=== PATIENT | female | born 1990 | race Caucasian/White ===

== ENCOUNTER 2020-08-03 15:27 | Inpatient (IN) ==
[2020-08-03] MEDS ORDERED: RINGER'S SOLUTION,LACTATED 1,000 ML IV ONE (15:38)
[2020-08-03] MEDS ORDERED: OXYTOCIN/0.9 % SODIUM CHLORIDE 30 UNITS/500 ML BAG IV ONE (15:38)
[2020-08-03] MEDS ORDERED: ONDANSETRON 4 MG TAB.RAPDIS PO PRN (15:38)
[2020-08-03] MEDS: DEXTROSE 5%-LACTATED RINGERS 1,000 ML IV PRN (18:58)
[2020-08-03] MEDS ORDERED: BUPIVACAINE HCL/0.9 % NACL/PF 250 ML EP PRN (23:07)
[2020-08-03] MEDS ORDERED: NALOXONE HCL 1 MG/1 ML SYRG IV PRN (23:07)
[2020-08-03] MEDS ORDERED: ONDANSETRON HCL/PF 2 MG/ML VIAL IV PRN (23:07)
[2020-08-03] MEDS ORDERED: fentaNYL CITRATE/PF 50 MCG/ML AMPUL IT SCH (23:15)
--- NOTE | 2020-08-04 00:17 | ANES ---
Anesthesia Pre Procedure Eval Vitals/Labs: Last Vital Signs Temp 36.3 C 08/04/20 00:08 Pulse 87 08/04/20 00:08 Resp 17 08/04/20 00:08 BP 113/71 08/04/20 00:08 Pulse Ox 99 08/04/20 00:08 HOME MEDICATIONS levothyroxine 25 mcg capsule 50 mcg PO DAILY cap 11/18/18 [Last Taken Unknown] acetone (urine) test See Rx Instructions .ROUTE .MEDSUPPLY #100 ea 05/29/20 [Last Taken Unknown] blood sugar diagnostic See Rx Instructions .ROUTE .MEDSUPPLY #100 ea 05/29/20 [Last Taken Unknown] blood-glucose meter See Rx Instructions .ROUTE .MEDSUPPLY #1 ea 05/29/20 [Last Taken Unknown] lancets See Rx Instructions .ROUTE .MEDSUPPLY #100 ea 05/29/20 [Last Taken Unknown] Vits96/Iron Fum/Folic [ S] 1 tab PO DAILY 08/03/20 [Last Taken Unknown] Allergies/Adverse Reactions: Allergies Allergy/AdvReac Type Severity Reaction Status Date / Time carbinoxamine maleate AdvReac Intermediate HYPERSTIMUL Verified 08/03/20 15:33 [From Rondec] ATED pseudoephedrine HCl AdvReac Intermediate HYPERSTIMUL Verified 08/03/20 15:33 [From Rondec] ATED acetaminophen [From Percocet] AdvReac Mild Hives Verified 08/03/20 15:33 amoxicillin [Amoxicillin] AdvReac Mild Hives Verified 08/03/20 15:33 cefaclor [From Ceclor] AdvReac Mild childhood/u Verified 08/03/20 15:33 nknown cefixime [From Suprax] AdvReac Mild Hives Verified 08/03/20 15:33 Cephalosporins AdvReac Mild Hives Verified 08/03/20 15:33 oxycodone HCl [From Percocet] AdvReac Mild Hives Verified 08/03/20 15:33 Penicillins AdvReac Mild Hives Verified 08/03/20 15:33 Sulfa (Sulfonamide AdvReac Mild Hives Verified 08/03/20 15:33 Antibiotics) [Sulfa(Sulfonamide Antibiotics)] erythromycin base AdvReac Unknown unknown/chi Verified 08/03/20 15:33 [Erythromycin Base] ldhood - Planned Procedure Planned Procedure: active labor Medication List Reviewed:: Yes Allergies Verified: Yes Medical History (Last Reviewed 08/04/20 @ 00:15 by Prakash Adrian CRNA) Hypothyroid (Chronic) Body mass index (BMI) of 36.0 to 36.9 (Chronic) Anxiety (Chronic) Abnormal Pap smear of vagina Onset Date: ~2012 Depression Onset Date: Unknown Generalized anxiety disorder Onset Date: Unknown Surgical History (Last Reviewed 08/04/20 @ 00:15 by Prakash Adrian CRNA) H/O adenoidectomy Onset Date: ~05/2000 History of cholecystectomy Onset Date: ~07/2013 History of colposcopy Onset Date: ~09/2013 History of myringotomy Onset Date: ~05/2000 History of repair of anterior cruciate ligament of right knee Onset Date: ~2006 History of tonsillectomy Onset Date: ~1995 Injury of meniscus of right knee Onset Date: ~2006 Surgical screw in right hand Onset Date: ~1998 Family History (Last Reviewed 08/04/20 @ 00:15 by Prakash Adrian CRNA) Mother Migraines Fibromyalgia Father Epilepsy H/O colonoscopy with polypectomy MDS (myelodysplastic syndrome) Sister Alive and well Grandmother CHF (congestive heart failure) paternal grandmother Grandfather , prostate cancer Cancer Aunt , maternal aunt breast and lung cancer Cancer - Family Anesthesia History Family History:: no untoward family reactions to anesthesia, no familial bleeding tendencies, no family history of clotting disorders, no family history of premature - Airway/Neck/Teeth Within Normal Limits:: Yes Teeth Condition: intact Neck Exam: full range of motion Mallampatti Score: 2 Thyromental (T-M) distance: > 6 cm Mandibulo Hyoid distance: > 3 cm - Respiratory Respiratory Physical: lungs clear Sleep Apnea currently treated: No Sleep Apnea by current assessment: No - Cardiovascular Tolerate Activity: Fair Heart Sounds: S1 & S2, Regular - Gastrointestinal NPO since: 2400 - Anesthesia Assessment and Plan ASA Class: PS, II, E Anesthesia Type Plan: Epidural - CSE for labor epidural
[2020-08-04] MEDS: DEXTROSE 5%-LACTATED RINGERS 1,000 ML IV PRN (00:20)
--- NOTE | 2020-08-04 00:39 | ANES ---
Post Anesthesia Discharge - Transfer of Care Transfer of Care handoff given to nurse: Yes - Discharge from PACU Discharge from PACU when meets criteria: Yes - Comfortable post CSE
--- NOTE | 2020-08-04 00:39 | ANES ---
Anesthesia Procedure Note Procedure Note: ANESTHESIA PROCEDURE NOTE Date of Procedure: 08/04/2020 Time of procedure: 12:15 AM. Performed by: JONNY Silva CRNA, MSN Lacer And Tier: Evette De La Vega RN. Preprocedure diagnosis: Active labor, labor pain. Post procedure diagnosis: Same. Procedure:Epidural for labor analgesia L3-4. Indications: Labor pain. Findings: See below. Details of the procedure: The patient was placed on the side of the bed in sitting positionand prepped with DuraPrep then draped in a sterile fashion. Lidocaine 1% was infiltrated to the skin and subcutaneous tissues at the level of the L3-4 interspace. An 18-gauge Touhy needle was used to approach the epidural space with loss of resistance technique. Once loss of resistance was achieved a 27-gauge spinal needle was passed through the epidural needle and CSF was contacted. After CSF returned, 20 mcg of fentanyl was injected in the spinal needle was removed the epidural catheter was then threaded approximately 4 cm in the epidural needle was removed. The catheter was taped in place and after careful aspiration 3 mL of 1.5% lidocaine with 1-200,000 epinephrine was injected without change in maternal heart rate or sensorium. . EBL: Minimal. Fluids: N/A. Specimen: N/A. Post procedure condition: The patient tolerated the procedure well with good relief. No complications were noted. Thank you for this consultation. Prakash Adrian CRNA, ARNP, MSN
--- NOTE | 2020-08-04 00:53 | ANES ---
Post Anesthesia Assessment - Vital Signs Vitals: Last Vital Signs Temp 36.3 C 08/04/20 00:08 Pulse 87 08/04/20 00:08 Resp 17 08/04/20 00:08 BP 113/71 08/04/20 00:08 Pulse Ox 99 08/04/20 00:08 Airway Patency: Normal - Mental Status Level Of Consciousness: Awake, Alert, Appropriate - Pain Level Pain Score: 0 - N/V Assessment Nausea/Vomiting Presence: None Dehydration:: No
[2020-08-04] MEDS ORDERED: BUPIVACAINE HCL/PF 30 ML VIAL EP ONE ×2 (09:15→18:14)
[2020-08-04] MEDS ORDERED: RINGER'S SOLUTION,LACTATED 1,000 ML IV ONE (09:15)
[2020-08-04] MEDS ORDERED: BUPIVACAINE HCL/PF 30 ML VIAL ONE (09:20)
--- NOTE | 2020-08-04 11:14 | HP ---
Chief Complaint - Chief Complaint Date of Service: 08/04/20 Time of Service: 11:00 Chief Complaint: leaking fluid and nasim History of Present Illness: 30 yo admitted at 38w5d for SROM/early labor. Patient had SROM of clear fluid at 1300 yesterday, followed by mild contractions. This complicated by anxiety/depression, hypothyroidism, and obesity. Rh negative Rubella Nonimmune GBS negative Medical History (Last Reviewed 08/04/20 @ 11:05 by Sagar Cabrera DO) Hypothyroid (Chronic) Body mass index (BMI) of 36.0 to 36.9 (Chronic) Anxiety (Chronic) Abnormal Pap smear of vagina Onset Date: ~2012 Depression Onset Date: Unknown Generalized anxiety disorder Onset Date: Unknown Surgical History: Surgical History (Last Reviewed 08/04/20 @ 11:05 by Sagar Cabrera DO) H/O adenoidectomy Onset Date: ~05/2000 History of cholecystectomy Onset Date: ~07/2013 History of colposcopy Onset Date: ~09/2013 History of myringotomy Onset Date: ~05/2000 History of repair of anterior cruciate ligament of right knee Onset Date: ~2006 History of tonsillectomy Onset Date: ~1995 Injury of meniscus of right knee Onset Date: ~2006 Surgical screw in right hand Onset Date: ~1998 Family History: Family History (Last Reviewed 08/04/20 @ 11:05 by Sagar Cabrera DO) Mother Migraines Fibromyalgia Father Epilepsy H/O colonoscopy with polypectomy MDS (myelodysplastic syndrome) Sister Alive and well Grandmother CHF (congestive heart failure) paternal grandmother Grandfather , prostate cancer Cancer Aunt , maternal aunt breast and lung cancer Cancer Social History: (Last Reviewed 08/04/20 @ 11:05 by Sagar Cabrera DO) Social History: Marital status: current occupational status: employed current occupation: teacher Highest education level completed: Bachelor's degree Service: No Tobacco: Smoking Status: Never smoker Alcohol: alcohol intake: former Alcohol type: hard liquor alcohol intake frequency: a few times a month Substance Use: substance use type: does not use Dietary Habits: caffeine: Yes Type: coffee Personal Safety: victim of physical abuse: No victim of emotional abuse: No Review Of Systems (GEN) - Review of Systems Generalized/Overall Review: Present: No Symptoms Reported EENTM: Present: No Symptoms Reported Respiratory: Present: No Symptoms Reported Cardiac: Present: No Symptoms Reported Abdominal: Present: Other - mild contractions Genitourinary: Present: Other - LOF since 1300 08/03/20. Musculoskeletal: Present: No Symptoms Reported Neurological: Present: No Symptoms Reported Skin: Present: No Symptoms Reported Endocrine: Present: No Symptoms Reported Allergies/Adverse Reactions: Allergies Allergy/AdvReac Type Severity Reaction Status Date / Time carbinoxamine maleate AdvReac Intermediate HYPERSTIMUL Verified 08/03/20 15:33 [From Rondec] ATED pseudoephedrine HCl AdvReac Intermediate HYPERSTIMUL Verified 08/03/20 15:33 [From Rondec] ATED acetaminophen [From Percocet] AdvReac Mild Hives Verified 08/03/20 15:33 amoxicillin [Amoxicillin] AdvReac Mild Hives Verified 08/03/20 15:33 cefaclor [From Ceclor] AdvReac Mild childhood/u Verified 08/03/20 15:33 nknown cefixime [From Suprax] AdvReac Mild Hives Verified 08/03/20 15:33 Cephalosporins AdvReac Mild Hives Verified 08/03/20 15:33 oxycodone HCl [From Percocet] AdvReac Mild Hives Verified 08/03/20 15:33 Penicillins AdvReac Mild Hives Verified 08/03/20 15:33 Sulfa (Sulfonamide AdvReac Mild Hives Verified 08/03/20 15:33 Antibiotics) [Sulfa(Sulfonamide Antibiotics)] erythromycin base AdvReac Unknown unknown/chi Verified 08/03/20 15:33 [Erythromycin Base] ldhood Home Medications: HOME MEDICATIONS levothyroxine 25 mcg capsule 50 mcg PO DAILY cap 11/18/18 [Last Taken Unknown] acetone (urine) test See Rx Instructions .ROUTE .MEDSUPPLY #100 ea 05/29/20 [Last Taken Unknown] blood sugar diagnostic See Rx Instructions .ROUTE .MEDSUPPLY #100 ea 05/29/20 [Last Taken Unknown] blood-glucose meter See Rx Instructions .ROUTE .MEDSUPPLY #1 ea 05/29/20 [Last Taken Unknown] lancets See Rx Instructions .ROUTE .MEDSUPPLY #100 ea 05/29/20 [Last Taken Unknown] Vits96/Iron Fum/Folic [ S] 1 tab PO DAILY 08/03/20 [Last Taken Unknown] Exam - Exam Vital Signs: Vital Signs - Last Taken Temp 36.3 C 08/04/20 00:08 Pulse 87 08/04/20 00:08 Resp 17 08/04/20 00:08 BP 113/71 08/04/20 00:08 Pulse Ox 99 08/04/20 00:08 Constitutional: Present: Alert, Oriented x3, Cooperative, Mild distress ENT Exam: Present: hearing grossly normal Neck: Present: non-tender, trachea midline Breasts: Present: Exam deferred Respiratory: Present: lungs clear, no respiratory distress Cardiovascular/Chest: Present: normal peripheral pulses, regular rate, rhythm, edema - b/l LE 1+ Abdomen: Present: soft, nontender, no rebound tenderness, other - gravid /Rectal: Present: Other - Cervix 2/60/-1 upon admission Extremity: Present: no calf tenderness, pedal edema Skin Exam: Present: normal color, warm/dry, no cyanosis Neurologic: Present: alert, normal mood/affect, oriented x 3 Appearance: Present: appropriate appearance, appropriate insight Eye contact: Present: cooperative, good eye contact Thoughts: Present: normal mood /affect Assessment/Plan - Assessment/Plan (1) Delayed delivery after SROM (spontaneous rupture of membranes) Assessment: Admit for routine management of labor. Pitocin and epidural PRN. Rubella vaccine PP in office. Problem: Acute (2) Hypothyroid Problem: Chronic Qualifiers: Hypothyroidism type: unspecified (3) Body mass index (BMI) of 36.0 to 36.9 Problem: Chronic (4) Anxiety Problem: Chronic (5) Depression Problem: Chronic Qualifiers: Depression Type: unspecified Qualified Code(s): F32.9 - Major depressive disorder, single episode, unspecified (6) Rubella non-immune status, antepartum Problem: Chronic
--- NOTE | 2020-08-04 11:17 | PN ---
Progess Note - Interim Date: 08/04/20 Time: 10:35 Narrative: 08/04/20 11:14 Patient comfortable with epidural Vital signs stable. Pitocin at 14 mu/min. FHT: 140 baseline, reassuring contractions q 3 min Cervix: Complete/+1 Impression: Intrauterine at 38 6/7 weeks in labor. Spontaneous rupture of membranes since 1300 on 07/24/20 -no signs of infection. Plan: We will begin pushing. Expect normal spontaneous vaginal delivery soon.
[2020-08-04] MEDS ORDERED: LIDOCAINE HCL 50 ML VIAL IJ ONE (14:31)
[2020-08-04] MEDS ORDERED: LIDOCAINE HCL 50 ML VIAL ONE (14:33)
[2020-08-04] MEDS ORDERED: diphenhydrAMINE HCL 25 MG CAPSULE PO PRN (14:57)
[2020-08-04] MEDS ORDERED: BISACODYL 10 MG SUPP.RECT RC PRN (14:57)
[2020-08-04] MEDS ORDERED: GLYCERIN/WITCH HAZEL LEAF 40 APPL BOX TP PRN (14:57)
[2020-08-04] MEDS ORDERED: OXYTOCIN/0.9 % SODIUM CHLORIDE 30 UNITS/500 ML BAG IV ONE (14:57)
[2020-08-04] MEDS ORDERED: SENNOSIDES 8.6 MG TABLET PO PRN (14:57)
[2020-08-04] MEDS ORDERED: HYDROcodone/ACETAMINOPHEN 1 EACH TABLET PO PRN ×2 (14:57)
[2020-08-04] MEDS ORDERED: BENZOCAINE/MENTHOL 81 SPRAY CAN TP PRN (14:57)
[2020-08-04] MEDS ORDERED: HYDROCORTISONE 30 APPL TUBE TP PRN (14:57)
--- NOTE | 2020-08-04 14:57 | OR ---
Vacuum-Assist Vaginal Delivery Date:: 08/04/20 Time:: 14:54 Pre Op Diagnosis/Indication for use:: Prolonged second stage Heart Rate Interpretation:: Reassuring EFW:: 3400 grams Station:: + 5 Position of the head: OA Cervix:: The cervix was completely dilated and effaced. Maternal- size appropriate for application. The bladder was emptied. Counseling:: Patient counseling: Indications discussed and questions answered. The patient consented to operative delivery. - Details of Procedure: Cup Placement:: Flexion point identified. Cup choice appropriate for application site. Maternal tissue excluded from vacuum cup. Station at application:: +5 Position:: OA Anesthesia Type: Epidural Laceration Type:: Perineal - Vacuum Application: Vacuum Used:: Mushroom Total Time of vacuum applications (minutes):: 1 - A total of 70 seconds Maximum vacuum achieved: cm H Number of pulls/contractions:: 2 Number of involuntary releases:: 0 Vacuum event:: The vacuum was reduced between contractions. There was advancement in station with each pull. - Post Procedure Eval: Sex: Male Weight (Grams): 3,469 Delivery Date: 08/04/20 Delivery Time: 14:31 Score 1 min: 7 Score 5 min: 9 Extraction successful:: Yes Amniotic Fluid Color: Clear - terminal meconium Placenta Delivery: Spontaneous injury/anomalies:: No Maternal EBL:: 300 mL Shoulder Dystocia:: No Nuchal Cord: Around neck x1, loose - reduced prior to delivery
[2020-08-04] MEDS: IBUPROFEN 800 MG TABLET PO PRN (17:09)
[2020-08-04] MEDS ORDERED: RHO(D) IMMUNE GLOBULIN 1,500 UNIT SYRINGE IM ONE (19:59)
[2020-08-04] MEDS: DOCUSATE SODIUM 100 MG CAPSULE PO SCH (21:45)
[2020-08-05] MEDS: LEVOTHYROXINE SODIUM 50 MCG TABLET PO SCH (10:22)
[2020-08-05] MEDS: DOCUSATE SODIUM 100 MG CAPSULE PO SCH ×2 (10:22→20:49)
[2020-08-05] MEDS: IBUPROFEN 800 MG TABLET PO PRN ×2 (10:22→23:12)
[2020-08-05] MEDS: PRENATAL VITS96/IRON FUM/FOLIC 1 TAB TABLET PO SCH (10:23)
--- NOTE | 2020-08-05 12:03 | PN ---
Subjective - Date and Time Seen Date: 08/05/20 Time: 12:02 Objective - Vitals Vitals: Last Vital Signs Temp 35.8 C L 08/05/20 07:32 Pulse 84 08/05/20 07:32 Resp 18 08/05/20 07:32 BP 120/65 08/05/20 07:32 Pulse Ox 98 08/05/20 07:32 Patient denies complaints. Breast-feeding. Fasting blood sugar 80, 1 hour postprandial blood sugar 101 Lochia wnl abdomen - soft, nontender Uterus -firm, at umbilicus - 1 No calf tenderness Impression: day #1 - s/p vacuum-assisted vaginal delivery. Gestational diabetes-resolved. Defaults Plan: Continue routine care Cauti Physician Documentation - Urinary Catheter Management Urethral ([place]) Date of Insertion: 08/04/20 Time of Insertion: 01:05 Assessment/Plan - Problems/Diagnosis (1) Delayed delivery after SROM (spontaneous rupture of membranes) Problem: Acute (2) Hypothyroid Problem: Chronic Qualifiers: Hypothyroidism type: unspecified (3) Body mass index (BMI) of 36.0 to 36.9 Problem: Chronic (4) Anxiety Problem: Chronic (5) Depression Problem: Chronic Qualifiers: Depression Type: unspecified Qualified Code(s): F32.9 - Major depressive disorder, single episode, unspecified (6) Rubella non-immune status, antepartum Problem: Chronic
[2020-08-06] MEDS: DOCUSATE SODIUM 100 MG CAPSULE PO SCH ×2 (07:09→08:14)
[2020-08-06] MEDS: PRENATAL VITS96/IRON FUM/FOLIC 1 TAB TABLET PO SCH ×2 (07:09→08:14)
[2020-08-06] MEDS: LEVOTHYROXINE SODIUM 50 MCG TABLET PO SCH ×2 (07:10→08:14)
[2020-08-06 07:26] VITALS: BP 117/77
--- NOTE | 2020-08-06 09:06 | PN ---
Subjective - Date and Time Seen Date: 08/06/20 Time: 09:04 Objective - Vitals Vitals: Last Vital Signs Temp 36.4 C 08/06/20 07:26 Pulse 80 08/06/20 07:26 Resp 18 08/06/20 07:26 BP 117/77 08/06/20 07:26 Pulse Ox 98 08/06/20 07:26 Patient denies complaints. Breast-feeding well. Lochia wnl abdomen - soft, nontender Uterus -firm, at umbilicus - 2 No calf tenderness Impression: day #2 - s/p spontaneous vaginal delivery. Gestational diabetes-resolved. Plan: Routine discharge instructions Cauti Physician Documentation - Urinary Catheter Management Urethral ([place]) Date of Insertion: 08/04/20 Time of Insertion: 01:05 Assessment/Plan - Problems/Diagnosis (1) Delayed delivery after SROM (spontaneous rupture of membranes) Problem: Resolved (2) Hypothyroid Problem: Chronic Qualifiers: Hypothyroidism type: unspecified (3) Body mass index (BMI) of 36.0 to 36.9 Problem: Chronic (4) Anxiety Problem: Chronic (5) Depression Problem: Chronic Qualifiers: Depression Type: unspecified Qualified Code(s): F32.9 - Major depressive disorder, single episode, unspecified (6) Rubella non-immune status, antepartum Problem: Chronic (7) Gestational diabetes Problem: Resolved Qualifiers: Gestational diabetes mellitus control: diet-controlled Trimester: third trimester Qualified Code(s): O24.410 - Gestational diabetes mellitus in , diet controlled
--- NOTE | 2020-08-06 09:08 | DS ---
OB Discharge Summary (1) Delayed delivery after SROM (spontaneous rupture of membranes) Status: Resolved (2) Hypothyroid Status: Chronic Qualifiers: Hypothyroidism type: unspecified Qualified Code(s): E03.9 - Hypothyroidism, unspecified (3) Body mass index (BMI) of 36.0 to 36.9 Status: Chronic (4) Anxiety Status: Chronic (5) Depression Status: Chronic Qualifiers: Depression Type: unspecified Qualified Code(s): F32.9 - Major depressive disorder, single episode, unspecified (6) Rubella non-immune status, antepartum Status: Chronic (7) Gestational diabetes Status: Resolved Qualifiers: Gestational diabetes mellitus control: diet-controlled Trimester: third trimester Qualified Code(s): O24.410 - Gestational diabetes mellitus in , diet controlled Delivery Date: 08/04/20 Delivery Time: 14:31 :: 1 Para:: 1 Gestational weeks:: 36 Gestational days:: 6 Intrapartum Procedures: Delivered, Vacuum-Assisted /OP Complications: No Complications Discharge Diagnosis: Term -Delivered, GDM - Oral Dependent, Rubella Nonimmune - Discharge Information Date of Discharge: 08/06/20 Hospital Course: 30-year-old 1 para 0 admitted at 38 5 7 weeks for early labor with spontaneous rupture of membranes. Patient progressed to complete pushed for approximately 2 hours and required vacuum-assisted vaginal delivery by Dr. Inman for prolonged second stage/maternal exhaustion. Baby was born with terminal meconium and loose nuchal cord, requiring several minutes of CPAP. From this point both mother and baby did well and were discharged on day 2 with routine discharge instructions. day 1 blood sugars were within normal limits. Patient was counseled on her increased risk for developing diabetes in her lifetime. She will be checked annually for diabetes. Her MMR shot will be given . Discharge Location: Home Disposition: Home self-care Condition: Good Referrals: Aliyah Saravia APRN [Primary Care Provider] - Activity on Discharge:: Activity as tolerated Discharge Diet: General/regular food Additional Patient Instructions (free text): Pete marc have an appointment with Dr. Cabrera on September 03 at 9:15 Lisandro has an appointment Lisandro weight today is 7lbs 4.4 oz. His bili level at 38 hours of life is 7.2. His blood type is A+. He has passed his hearing screen, CHD Screening, his metabolic screen has been drawn. Please continue to nurse on demand or every 2-3 hours. Always lay Lisandro on his back to sleep with no loose blankets or stuffed animals in his sleeping space. Thank you for choosing [facility] for your special delivery. Please never hesitate to call if you have any questions or concerns. [facility] [phone] [facility] [phone] [facility] [phone] Prescriptions (Any new or edited meds): Ibuprofen [Motrin] 200 - 800 mg PO Q6H PRN #100 tab PRN Reason: Pain Complete Home Medications List: Complete Home Medication List: levothyroxine 25 mcg capsule 50 mcg PO DAILY cap 11/18/18 Vits96/Iron Fum/Folic [ S] 1 tab PO DAILY 08/03/20 Ibuprofen [Motrin] 200 - 800 mg PO Q6H PRN #100 tab 08/05/20 - Plan Discharge to:: Home Follow up in office in:: 3-4 weeks - [place] Information Weight (Grams): 3,469 Sex: Male Score 1 min: 7 Score 5 min: 9 Circumcision: Yes Infant Complications: None, Other Other Complications: Cpap 20 minutes, cord around the neck and reduced, vaccum assist.
[2020-08-06] MEDS: IBUPROFEN 800 MG TABLET PO PRN (12:05)
== END 2020-08-06 13:20 | disposition home or self-care (01) | DRG 807 ==
LOC: OB 15:27
PROVIDERS: ADMIT Obstetrics & Gynecology; ATTEND Obstetrics & Gynecology